=== PATIENT | male | born 1950 | race Caucasian/White ===

== ENCOUNTER 2016-10-19 10:51 | Observation (INO) | payer OTHER ==
[~2016-10-19] VITALS: Ht 180.3 cm; Wt 64.0 kg
--- NOTE | 2016-10-19 11:11 | PD ---
HPI Chief Complaint: back pain Time Seen by Provider: 11:07 Travel History International Travel<30 days: No Contact w/Intl Traveler<30days: No Traveled to known affect area: No History of Present Illness HPI 66-year-old male [facility] patient with history of previous neck injury, presents to the ER today with several weeks' history of lower back pain with radiation down the left leg and to the left side which she currently measures a 4 out of 10. He states that it is worse when he tries to walk and he lives alone. He states is getting more difficult for him to do things and he states that he has had stool incontinence and urinary incontinence because he is in so much pain he can 't get into the bathroom in time. However, he states he does have control of his bowels. He denies any fevers, injuries, denies any other issues. Modifying Factors: Worse with movement Associated Signs & Symptoms: Lower back pain Risk Factors: None PFSH Past Medical History Diminished Hearing: No Past Surgical History Abdominal Surgery: Yes (HERNIA WITH KEN SCREEN) Neurologic Surgery: Yes (NECK) Oral Surgery: Yes (WISDOM TOOTH) Social History Alcohol Use: Yes (2-4PK/DAY) Tobacco Use: Yes (2PPD) Substance Use: No Allergies-Medications (Allergen,Severity, Reaction): Coded Allergies: Penicillin (Verified Allergy, Mild, "WILL KILL ME", 10/19/16) Reported Meds & Prescriptions Reported Meds & Active Scripts Active No Active Prescriptions or Reported Medications Review of Systems Except as stated in HPI: all other systems reviewed are Neg Physical Exam Narrative GENERAL: Well-developed elderly white male patient currently in mild distress. Awake and oriented 3. SKIN: Focused skin assessment warm/dry. HEAD: Atraumatic. Normocephalic. EYES: Pupils equal and round. No scleral icterus. No injection or drainage. ENT: No nasal bleeding or discharge. Mucous membranes pink and moist. NECK: Trachea midline. No JVD. CARDIOVASCULAR: Regular rate and rhythm. No murmur appreciated. RESPIRATORY: No accessory muscle use. Clear to auscultation. Breath sounds equal bilaterally. GASTROINTESTINAL: Abdomen soft, non-tender, nondistended. Hepatic and splenic margins not palpable. MUSCULOSKELETAL: No obvious deformities. No clubbing. No cyanosis. No edema. BACK: No CVA tenderness. No rash. No point tenderness on palpation of the spine. NEUROLOGICAL: Awake and alert. No obvious cranial nerve deficits. Motor grossly within normal limits. Normal speech. PSYCHIATRIC: Appropriate mood and affect; insight and judgment normal. Data Data Last Documented VS Vital Signs Date Time Temp Pulse Resp B/P Pulse Ox O2 Delivery O2 Flow Rate FiO2 10/19/16 14:21 89 18 113/78 98 10/19/16 11:15 Room Air 10/19/16 11:12 98.4 Orders Complete Blood Count With Diff (10/19/16 11:07) Comprehensive Metabolic Panel (10/19/16 11:07) Urinalysis - C+S If Indicated (10/19/16 11:07) Ct Thor Spine W/O Contrast (10/19/16 11:07) Ct Lumb Spine W/O Contrast (10/19/16 11:07) Ct Hip W/O Contrast (10/19/16 ) Urine Culture (10/19/16 12:00) Admit Order (Ed Use Only) (10/19/16 15:48) Blood Culture (10/19/16 15:52) Ceftriaxone Inj (Rocephin Inj) (10/19/16 16:00) Labs Laboratory Tests Test 10/19/16 10/19/16 11:58 12:00 White Blood Count 7.2 TH/MM3 Red Blood Count 3.94 MIL/MM3 Hemoglobin 13.6 GM/DL Hematocrit 40.3 % Mean Corpuscular Volume 102.2 FL Mean Corpuscular Hemoglobin 34.5 PG Mean Corpuscular Hemoglobin 33.8 % Concent Red Cell Distribution Width 14.4 % Platelet Count 179 TH/MM3 Mean Platelet Volume 9.4 FL Neutrophils (%) (Auto) 77.4 % Lymphocytes (%) (Auto) 15.4 % Monocytes (%) (Auto) 6.1 % Eosinophils (%) (Auto) 0.4 % Basophils (%) (Auto) 0.7 % Neutrophils # (Auto) 5.6 TH/MM3 Lymphocytes # (Auto) 1.1 TH/MM3 Monocytes # (Auto) 0.4 TH/MM3 Eosinophils # (Auto) 0.0 TH/MM3 Basophils # (Auto) 0.1 TH/MM3 CBC Comment DIFF FINAL Differential Comment Sodium Level 129 MEQ/L Potassium Level 3.4 MEQ/L Chloride Level 92 MEQ/L Carbon Dioxide Level 29.5 MEQ/L Anion Gap 8 MEQ/L Blood Urea Nitrogen 10 MG/DL Creatinine 1.09 MG/DL Estimat Glomerular Filtration 67 ML/MIN Rate Random Glucose 104 MG/DL Calcium Level 8.5 MG/DL Total Bilirubin 0.8 MG/DL Aspartate Amino Transf 25 U/L (AST/SGOT) Alanine Aminotransferase 24 U/L (ALT/SGPT) Alkaline Phosphatase 93 U/L Total Protein 7.0 GM/DL Albumin 3.3 GM/DL Urine Color YELLOW Urine Turbidity HAZY Urine pH 5.5 Urine Specific [place] 1.015 Urine Protein TRACE mg/dL Urine Glucose (UA) NEG mg/dL Urine Ketones NEG mg/dL Urine Occult Blood NEG Urine Nitrite POS Urine Bilirubin NEG Urine Urobilinogen 2.0 MG/DL Urine Leukocyte Esterase LARGE Urine RBC 1 /hpf Urine WBC 15 /hpf Urine Transitional Epithelial <1 /hpf Cells Urine Bacteria MANY /hpf Urine Hyaline Casts 1 /lpf Urine Mucus FEW /lpf Microscopic Urinalysis Comment CULTURE INDICATED MDM Medical Decision Making Medical Screen Exam Complete: Yes Emergency Medical Condition: Yes Medical Record Reviewed: Yes Interpretation(s) Laboratory Tests Test 10/19/16 10/19/16 11:58 12:00 Red Blood Count 3.94 MIL/MM3 (4.50-5.90) Mean Corpuscular Volume 102.2 FL (80.0-100.0) Mean Corpuscular Hemoglobin 34.5 PG (27.0-34.0) Neutrophils (%) (Auto) 77.4 % (16.0-70.0) Sodium Level 129 MEQ/L (136-145) Potassium Level 3.4 MEQ/L (3.5-5.1) Chloride Level 92 MEQ/L (98-107) Estimat Glomerular Filtration 67 ML/MIN (>89) Rate Albumin 3.3 GM/DL (3.4-5.0) Urine Turbidity HAZY (CLEAR) Urine Nitrite POS (NEG) Urine Leukocyte Esterase LARGE (NEG) Urine WBC 15 /hpf (0-5) Urine Bacteria MANY /hpf (NONE) Urine Mucus FEW /lpf (OCC) Last 24 hours Impressions [address] CT 10/19/16 2086 Signed Impressions: Service Date/Time: Wednesday, October 19, 2016 12:41 - CONCLUSION: 1. Mild multilevel degenerative spondylosis most prominently at T2-3 with moderate right neural foraminal stenosis secondary to posterior osteophytes. 2. Moderate left cardiovascular calcifications with ectasia of the thoracic aorta, as above. 3. Slight prominence of the main pulmonary artery which measures up to 3.1 cm. This finding may indicate some degree of pulmonary artery hypertension. 4. Bilateral renal cysts. Additional partially imaged and therefore incompletely characterized isodense and hyperdense lesions in the left kidney. Further characterization may be performed with ultrasound or multiphase CT/MRI exam on an outpatient basis. Narciso Ford MD Lumbar Spine CT 10/19/16 1107 Signed Impressions: Service Date/Time: Wednesday, October 19, 2016 12:41 - CONCLUSION: 1. Moderate multilevel degenerative spondylosis most prominently at L4-5 with eccentric exuberant right lateral osteophyte and facet arthropathy resulting in effacement right lateral recess and severe right neural foraminal stenosis. 2. Bilateral renal cysts with subcentimeter isodense and hyperdense renal lesions that are incompletely characterized on this exam due to incomplete visualization and lack of IV contrast. Further characterization may be performed with ultrasound or MRI/CT renal mass protocol as indicated. Narciso Ford MD Lower Extremity CT 10/19/16 0000 Signed Impressions: Service Date/Time: Wednesday, October 19, 2016 12:46 - CONCLUSION: Unremarkable study. KDewayne Coffey MD Differential Diagnosis Lower back pain with radiation down the left legradiculopathy versus muscle spasms versus sciatica versus fractures Narrative Course CAT scan shows multilevel disease and severe stenosis at L4-L5. Case is discussed with Dr. Obrien who agrees to admit the patient for possible further treatment of his back issues. Patient also has a UTI and IV Anzemet eyes were initiated. Diagnosis Primary Impression: Severe back pain Additional Impression: Spinal stenosis at L4-L5 level Admitting Information Admitting Physician Requests: Admit Scripts No Active Prescriptions or Reported Meds Maci Mono MD Oct 19, 2016 11:11
[2016-10-19 11:12] VITALS: BP 153/98; PULSE 104; PULSE 105; RESP 15; TEMP 98.4; O2SAT 100
[2016-10-19 12:17] LABS: AUTOMATED NEUTROPHIL # 5.6 TH/MM3 (1.8-7.7); BASOPHIL # 0.1 TH/MM3 (0-0.2); BASOPHIL % 0.7 % (0.0-2.0); EOSINOPHIL % 0.4 % (0.0-4.0); HEMATOCRIT 40.3 % (39.0-51.0); HEMO FLAGS DIFF FINAL; LYMPH % 15.4 % (9.0-44.0); LYMPHOCYTE # 1.1 TH/MM3 (1.0-4.8); MEAN CELL VOLUME 102.2 FL (80.0-100.0); MEAN CORPUSCULAR HEMOGLOBIN 34.5 PG (27.0-34.0); MEAN CORPUSCULAR HGB CONC 33.8 % (32.0-36.0); MONO % 6.1 % (0.0-8.0); NEUT % 77.4 % (16.0-70.0); PLATELET COUNT 179 TH/MM3 (150-450); RED BLOOD COUNT 3.94 MIL/MM3 (4.50-5.90); RED CELL DISTRIBUTION WIDTH 14.4 % (11.6-17.2); WHITE BLOOD COUNT 7.2 TH/MM3 (4.0-11.0)
[2016-10-19 12:21] LABS: BACTERIA, URINE MANY /hpf; BLOOD, URINE NEG (NEG); COMMENT (UR) CULTURE INDICATED; CULTURE IF INDICATED CULTURE INDICATED; GLUCOSE,URINE NEG (NEG); HYALINE CAST, URINE 1 /lpf (RARE); KETONE, URINE NEG (NEG); MUCUS URINE FEW /lpf (OCC); PH, URINE 5.5 (5.0-8.5); TRANSITIONAL EPI CELLS, URINE <1 /hpf; URINE COLOR YELLOW (YELLW/STRAW)
[2016-10-19 12:23] LABS: NITRITE,URINE POS (NEG)
[2016-10-19 12:38] LABS: ANION GAP 8 MEQ/L (5-15); AST (GOT) 25 U/L (15-37); BICARBONATE 29.5 MEQ/L (21.0-32.0); BLOOD UREA NITROGEN 10 MG/DL (7-18); CHLORIDE 92 MEQ/L (98-107); GLOMERULAR FILTRATION RATE 67 ML/MIN (>89); POTASSIUM 3.4 MEQ/L (3.5-5.1); SODIUM (NA) 129 MEQ/L (136-145)
[2016-10-19 12:41] LABS: ALKALINE PHOSPHATASE 93 U/L (45-117); ALT (GPT) 24 U/L (12-78); TOTAL BILIRUBIN ADULT 0.8 MG/DL (0.2-1.0)
--- NOTE | 2016-10-19 13:07 | RADRPT ---
EXAM DATE/TIME: 10/19/2016 12:46 [facility] COMPARISON: PELVIS AP ONLY, November 02, 2013, 18:37. INDICATIONS : Left hip pain. RADIATION DOSE: 8.32 CTDIvol (mGy) MEDICAL HISTORY : None SURGICAL HISTORY : None. ENCOUNTER: Initial ACUITY: 1 day PAIN SCALE: 8/10 LOCATION: Left hip TECHNIQUE: Volumetric scanning of the hip was performed. Using automated exposure control and adjustment of the mA and/or kV according to patient size, radiation dose was kept as low as reasonably achievable to o btain optimal diagnostic quality images. DICOM format image data is available electronically for rev iew and comparison. FINDINGS: No definite fractures, or dislocations are identified. No definite lytic or sclerotic lesion is seen . The joint space is well maintained. CONCLUSION: Unremarkable study. Court Coffey MD on October 19, 2016 at 13:02 Board Certified Radiologist. This report was verified electronically.
--- NOTE | 2016-10-19 13:35 | RADRPT ---
EXAM DATE/TIME: 10/19/2016 12:41 [facility] COMPARISON: No previous studies available for comparison. INDICATIONS : Lower back pain radiating down left leg RADIATION DOSE: 35.21 CTDIvol (mGy) ; Combined studies - Thoracic Spine/Lumbar Spine MEDICAL HISTORY : None SURGICAL HISTORY : Hernea repair,neck surgery ENCOUNTER: Initial ACUITY: 1 week PAIN SCALE: 4/10 LOCATION: T-spine TECHNIQUE: Volumetric scanning of the thoracic spine was performed. Multiplanar reconstructions in the sagittal , coronal and oblique axial planes were performed. Using automated exposure control and adjustment o f the mA and/or kV according to patient size, radiation dose was kept as low as reasonably achievable to obtain optimal diagnostic quality images. DICOM format image data is available electronically f or review and comparison. FINDINGS: The vertebral bodies of the thoracic spine are in normal alignment without evidence of subluxation. Vertebral body height is maintained. No fractures are seen. Visualized portions of the lungs demonst rates minimal right basilar groundglass opacities likely reflecting atelectasis. There are also focal areas of subtle groundglass opacity and cystic change in the right upper lobe and right lung apex li cliff reflecting sequela of inflammation/infection. Atherosclerotic calcifications are seen throughout the thoracic aorta and proximal arch vessels. There is ectasia of the thoracic aorta with the ascend ing aorta measuring 4 cm in the descending aorta measuring 3.1 cm. There is slight prominence of the main pulmonary artery which measures 3.1 cm. This may reflect some degree of pulmonary artery hyperte nsion. There are multiple simple cysts noted in the visualized portions of the kidneys bilaterally. A dditional isodense and hyperdense lesions which are incompletely imaged and characterized. T1-T2: Normal. T2-T3: Moderate disc space loss with eccentric posterior osteophyte formation. Resultant moderate right and very mild left neural foraminal stenosis. The thecal sac has a normal diameter. T3-T4: Mild to moderate disc space loss with minimal posterior osteophytes. The thecal sac has a normal diam eter. No significant neural foraminal stenosis. T4-T5: Mild to moderate disc space loss with minimal posterior osteophytes. The thecal sac has a normal diam eter. No significant neural foraminal stenosis. T5-T6: Mild to moderate disc space loss with minimal posterior osteophytes. The thecal sac has a normal diam eter. No significant neural foraminal stenosis. T6-T7: Mild to moderate disc space loss with minimal posterior disc osteophytes. The thecal sac has a normal diameter. No significant neural foraminal stenosis. T7-T8: The thecal sac has a normal diameter. No evidence of disc bulge or protrusion. T8-T9: The thecal sac has a normal diameter. No evidence of disc bulge or protrusion. T9-T10: The thecal sac has a normal diameter. No evidence of disc bulge or protrusion. T10-T11: Anterior osteophytes. The thecal sac has a normal diameter. No evidence of disc bulge or protrusion. T11-T12: Anterior osteophytes. The thecal sac has a normal diameter. Mild bilateral facet arthropathy. No louise dence of disc bulge or protrusion. T12-L1: Anterior osteophytes. The thecal sac has a normal diameter. Mild bilateral facet arthropathy No evid ence of disc bulge or protrusion. CONCLUSION: 1. Mild multilevel degenerative spondylosis most prominently at T2-3 with moderate right neural roland inal stenosis secondary to posterior osteophytes. 2. Moderate left cardiovascular calcifications with ectasia of the thoracic aorta, as above. 3. Slight prominence of the main pulmonary artery which measures up to 3.1 cm. This finding may indic ate some degree of pulmonary artery hypertension. 4. Bilateral renal cysts. Additional partially imaged and therefore incompletely characterized isoden se and hyperdense lesions in the left kidney. Further characterization may be performed with ultrasou nd or multiphase CT/MRI exam on an outpatient basis. Narciso Ford MD on October 19, 2016 at 13:15 Board Certified Radiologist. This report was verified electronically.
[2016-10-19 14:21] VITALS: BP 113/78; PULSE 89; RESP 18; O2SAT 98
--- NOTE | 2016-10-19 15:25 | RADRPT ---
EXAM DATE/TIME: 10/19/2016 12:41 [facility] COMPARISON: No previous studies available for comparison. INDICATIONS : Lower back pain. RADIATION DOSE: 32.21 CTDIvol (mGy) MEDICAL HISTORY : None SURGICAL HISTORY : None. ENCOUNTER: Initial ACUITY: 1 day PAIN SCALE: 8/10 LOCATION: lower back TECHNIQUE: Volumetric scanning of the lumbar spine was performed. Multiplanar reconstructions in the sagittal, coronal and oblique axial planes were performed. Using automated exposure control and adjustment of the mA and/or kV according to patient size, radiation dose was kept as low as reasonably achievable t o obtain optimal diagnostic quality images. DICOM format image data is available electronically for review and comparison. FINDINGS: VERTEBRAE: Normal vertebral body height. ALIGNMENT: No evidence of subluxation. PARAVERTEBRAL SOFT TISSUES: There are bilateral simple appearing renal cysts. However, there are partially imaged isodense to hyp odense subcentimeter bilateral renal lesions, most prominently on the left. There is moderate sigmoid diverticulosis. Moderate atherosclerotic calcifications are noted in the iliac vessels. T12-L1: The thecal sac has a normal diameter. No evidence of significant disc bulge or protrusion. The neur al foramina are patent bilaterally. L1-L2: Mild eccentric disc branch with with anterior osteophyte formation and mild bilateral facet arthropat hy. Resultant minimal caudal left neural foraminal narrowing. Central canal is patent. L2-L3: Mild diffuse disc bulge with effacement of the anterior thecal sac. Mild caudal bilateral neural fora katia narrowing. L3-L4: Mild diffuse disc bulge with with result in mild caudal bilateral neural foraminal narrowing. Central canal is patent. L4-L5: Mild diffuse disc and eccentric right lateral exuberant osteophytes. Moderate right and mild left fac et arthropathy. There is effacement of the lateral recess on the right. Resultant severe right neural foraminal stenosis. There is moderate caudal left neural foraminal stenosis. L5-S1: Mild diffuse disc bulge with severe right and moderate left facet arthropathy. Resultant mild left an d mild to moderate right caudal neural foraminal narrowing. Central canal is patent. CONCLUSION: 1. Moderate multilevel degenerative spondylosis most prominently at L4-5 with eccentric exuberant rig ht lateral osteophyte and facet arthropathy resulting in effacement right lateral recess and severe r ight neural foraminal stenosis. 2. Bilateral renal cysts with subcentimeter isodense and hyperdense renal lesions that are incomplete ly characterized on this exam due to incomplete visualization and lack of IV contrast. Further charac terization may be performed with ultrasound or MRI/CT renal mass protocol as indicated. Narciso Ford MD on October 19, 2016 at 13:34 Board Certified Radiologist. This report was verified electronically.
[2016-10-19] MEDS ORDERED: cefTRIAXone INJ 1,000 MG in SODIUM CHLORIDE 0.9% INJ 100 ML IV ONE (16:00)
--- NOTE | 2016-10-19 16:17 | PD.CONS ---
(Dmitriy Ventura) [facility] Service Neurosurgery Consult Requested By Dr Moon Reason for Consult Low back pain, left hip pain, difficulty walking Primary Care Physician No Primary Care Physician History of Present Illness This is a 66-year-old male who reports that he started with mid back pain a few weeks ago that has gradually worsened and changed locations. He states that he now has pain in the neck and the low back. The low back pain goes into both buttocks/hips when he stands and that both hips will give out on him. He denies any numbness, tingling or pain down either lower extremity or to the upper extremities. He states that he is unable to walk due to the pain but denies any falls. He has taken a "couple of Aleve" for the pain but denies any other medication for the pain. He reports urinating and stooling on himself but was aware he needed to go to the bathroom. He states he wasn't able to make it to the bathroom due to the pain and thus soiled himself. He reports that he lives by himself. When seen he states that his neck felt tight but was not painful and he denied any pain to the hips or the back. He has had a previous cervical fracture in 1970 in which he was placed in tongs with traction which resulted in fusion of C5-6 when in the . He denied any surgery to the cervical spine. (Dmitriy Ventura) Review of Systems CONSTITUTIONAL: Patient denies any fever or chills. HEENT: Patient endorses blurry vision and states he needs glasses. He is legally blind in the left eye. He denies any other visual or hearing problems. NECK: Patient complains of neck pain. RESPIRATORY: Patient denies any shortness of breath or productive cough. CARDIOVASCULAR: Patient denies any chest pain, palpitations or irregular heartbeat. GASTROINTESTINAL: Patient denies any abdominal pain, nausea, vomiting or incontinence of stool. He has stooled on himself but was aware he needed to go but couldn't make it to the bathroom in time due to pain. GENITOURINARY: Patient endorses urgency with urination. He denies any frequency or incontinence of urine. He has urinated on himself but was aware he needed to go but couldn't make it to the bathroom in time due to pain. INTEGUMENTARY: Patient denies any rashes, ulcerations or other lesions. MUSCULOSKELETAL: Patient complains of pain to both hips/buttocks, especially on the left and difficulty walking due to the pain. His legs are "wobbly" when he stands due to the pain. He denies any arm pain or weakness. HAEMATOLOGICAL/LYMPHATIC: Patient states he bleeds easily "once in a while." He denies any bruising or swollen glands. NEUROLOGICAL: Patient states he has difficulty walking secondary to the pain. He denies any headache, dizziness, numbness or tingling. PSYCHIATRIC: Patient denies any anxiety or depression. 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 HEENT: Normocephalic, atraumatic. Left eye clouded, right pupil round reacts briskly, EOMs intact. External ears w/o wounds, ear canals w/o erythema or drainage, TMs pearly rooney. MMM & pink. NECK: Minimally TTP at thoracocervical junction o/w midline cervical spine NTTP , no pain w/ROM, no JVD, trachea midline. RESPIRATORY: Mild adventious breath sounds upon exhalation, w/o W/R/R, equal excursion, nonlaboured, on RA. CARDIOVASCULAR: S1S2 w/RRR w/o M/G/R, radial & pedal pulses 2+ bilaterally, cap refill < 2 sec, no pedal edema. GASTROINTESTINAL: Abdomen soft, nontender, no palpable masses or organomegaly, positive bowel sounds. INTEGUMENTARY: Skin warm, dry & intact, no evident discolouration, ulcerations, rashes or other lesions. MUSCULOSKELETAL: SOLIMAN w/o difficulty, 5th digit bilateral hands w/boutonniere deformity, no evident clubbing, TTP to left buttock/lateral hip, minimally TTP at thoracocervical junction o/w midline thoracolumbar spine NTTP. HAEMATOLOGICAL/LYMPHATIC: No evident ecchymosis. PSYCHIATRIC: Readily interacts, normal affect. NEUROLOGICAL: AAOx3 Speech clear & appropriate Follows simple commands w/o difficulty CN II-XII grossly intact Sensation intact to light touch to all extremities Motor strength 5/5 to all major flexion & muscle groups including hand intrinsics & extrinsics Mild ankle clonus Babinski response neutral Mild tremor to upper extremities at rest, difficult to assess [facility] Laboratory Tests Test 10/19/16 10/19/16 11:58 12:00 White Blood Count 7.2 Red Blood Count 3.94 Hemoglobin 13.6 Hematocrit 40.3 Mean Corpuscular Volume 102.2 Mean Corpuscular Hemoglobin 34.5 Mean Corpuscular Hemoglobin 33.8 Concent Red Cell Distribution Width 14.4 Platelet Count 179 Mean Platelet Volume 9.4 Neutrophils (%) (Auto) 77.4 Lymphocytes (%) (Auto) 15.4 Monocytes (%) (Auto) 6.1 Eosinophils (%) (Auto) 0.4 Basophils (%) (Auto) 0.7 Neutrophils # (Auto) 5.6 Lymphocytes # (Auto) 1.1 Monocytes # (Auto) 0.4 Eosinophils # (Auto) 0.0 Basophils # (Auto) 0.1 CBC Comment DIFF FINAL Differential Comment Sodium Level 129 Potassium Level 3.4 Chloride Level 92 Carbon Dioxide Level 29.5 Anion Gap 8 Blood Urea Nitrogen 10 Creatinine 1.09 Estimat Glomerular Filtration 67 Rate Random Glucose 104 Calcium Level 8.5 Total Bilirubin 0.8 Aspartate Amino Transf 25 (AST/SGOT) Alanine Aminotransferase 24 (ALT/SGPT) Alkaline Phosphatase 93 Total Protein 7.0 Albumin 3.3 Urine Color YELLOW Urine Turbidity HAZY Urine pH 5.5 Urine Specific [place] 1.015 Urine Protein TRACE Urine Glucose (UA) NEG Urine Ketones NEG Urine Occult Blood NEG Urine Nitrite POS Urine Bilirubin NEG Urine Urobilinogen 2.0 Urine Leukocyte Esterase LARGE Urine RBC 1 Urine WBC 15 Urine Transitional Epithelial <1 Cells Urine Bacteria MANY Urine Hyaline Casts 1 Urine Mucus FEW Microscopic Urinalysis Comment CULTURE INDICATED Date/Time Procedure Status Source Growth 10/19/16 12:00 Urine Culture Received Urine Random Urine Pending (Dmitriy Ventura) Result Diagram: 10/19/16 1158 10/19/16 1158 Imaging Recent Impressions Thoracic Spine CT 10/19/161106 Signed Impressions: Service Date/Time: Wednesday, October 19, 2016 12:41 - CONCLUSION: 1. Mild multilevel degenerative spondylosis most prominently at T2-3 with moderate right neural foraminal stenosis secondary to posterior osteophytes. 2. Moderate left cardiovascular calcifications with ectasia of the thoracic aorta, as above. 3. Slight prominence of the main pulmonary artery which measures up to 3.1 cm. This finding may indicate some degree of pulmonary artery hypertension. 4. Bilateral renal cysts. Additional partially imaged and therefore incompletely characterized isodense and hyperdense lesions in the left kidney. Further characterization may be performed with ultrasound or multiphase CT/MRI exam on an outpatient basis. Narciso Ford MD Lumbar Spine CT 10/19/161106 Signed Impressions: Service Date/Time: Wednesday, October 19, 2016 12:41 - CONCLUSION: 1. Moderate multilevel degenerative spondylosis most prominently at L4-5 with eccentric exuberant right lateral osteophyte and facet arthropathy resulting in effacement right lateral recess and severe right neural foraminal stenosis. 2. Bilateral renal cysts with subcentimeter isodense and hyperdense renal lesions that are incompletely characterized on this exam due to incomplete visualization and lack of IV contrast. Further characterization may be performed with ultrasound or MRI/CT renal mass protocol as indicated. Narciso Ford MD Lower Extremity CT 10/19/16 0000 Signed Impressions: Service Date/Time: Wednesday, October 19, 2016 12:46 - CONCLUSION: Unremarkable study. Court Coffey MD (Dmitriy Ventura) Assessment and Plan Diagnosis: (1) Severe back pain ICD Code: M54.9 (2) Spinal stenosis at L4-L5 level ICD Code: M48.06 Assessment and Plan Impression: 1. Low back pain w/radiculopathy 2. L4-5 spinal stenosis 3. UTI Plan: Admit to NSGY (Dr Obrien) Pain control Broad spectrum abx and adjust based upon urine culture Diet as tolerated Mobilise patient w/assistance PT eval & tx (Dmitriy Ventura) Attending Statement I have personally seen and examined the patient on the date of this note. Pertinent documentation and study results have been reviewed by the undersigned. I have personally developed the treatment plan and performed medical decision making. Agree with findings, exam, and treatment plan as noted above. Mr. Shaw complains of 3 or 4 weeks of progressive left greater than right lateral hip pain with radiation to the lateral aspect of the left greater than right lower extremity down to the calf and occasionally the foot. He does complain also mid thoracic pain as well as somewhat more chronic neck pain. He denies any pain and weakness numbness or paresthesias in the upper extremities. He states that the hip and lateral leg pain becomes so severe that he cannot walk. He denies any fevers chills or sweats. He has an occasional cough but no chest pain. He does smoke cigarettes. He apparently is CT connected, but denies any workup of his spinal problems at the [facility] within the past few months. On examination he is awake and alert. He has opacification of the left cornea. His respirations are clear to auscultation cardiac exam reveals regular rhythm without murmur. He has no significant pain with range of motion of the shoulders hips knees or ankles. He has moderate cervical thoracic midline and paraspinous muscle tenderness was somewhat lesser tenderness in the midthoracic region. He actually has only mild tenderness over the lower lumbar midline and paraspinous musculature. No posterior iliac crest tenderness He does not really have any tenderness over the right or left lateral hip or posterior trochanter or gluteal musculature. No tenderness over the bilateral ischial tuberosity or sciatic notch. No obvious piriformis tenderness. He does not complain of any pain with bilateral hip range of motion her straight leg raising. There is no significant lower extremity edema atrophy or fasciculation. Posterior tibial pulse 1+ bilateral. Sensation is intact to light touch throughout the upper and lower extremities except for complain of mild decrease over the left lateral calf. Strength is within normal limits in all major flexion and extension groups throughout the upper and lower extremities including hand intrinsic musculature and inversion and eversion of the right left foot, although limited testing in the right hand due to some joint deformity. Bronwyn's response absent bilateral There is no ankle clonus Plantar responses are neutral The patient's 10/19/2016 CT scan of the thoracic and lumbar spine images of been reviewed by the undersigned. He has relatively normal overall thoracic and lumbar spine curvature. There is a rather large chronic-appearing right L4 5 foraminal calcified disc herniation, however the L4 and L5 nerve roots appear to traverse this area without significant compression. He actually does not seem to have any significant thoracic or lumbar spine stenosis and no subluxation. A single area of foraminal stenosis noted in the upper thoracic region but no significant lumbar foraminal stenosis except perhaps at the right L4 5 level. I had a long discussion with the patient regarding the findings. His presentation is quite unusual. I am unable to elicit any significant joint or myofascial pain along the hip and thigh region and no definite radicular deficit. He has primarily L5 distribution symptoms, but no definite evidence of L5 nerve compression on the CT scan. He has quite a bit of neck pain and tenderness, but no definite radicular or myelopathic symptoms or deficit. We will continue physical therapy I would like to check an MRI of the cervical spine since he does appear to have significant disease in the lower cervical region on the CT scan of the thoracic spine. We will check a CRP and sedimentation rate due to possibility inflammatory disease, infection. Initial labs positive for UTI-antibiotic started. (Eddie Obrien MD) Dmitriy Ventura Oct 19, 2016 16:17 Eddie Obrien MD Oct 19, 2016 22:54
[2016-10-19 17:07] VITALS: BP 101/70; PULSE 89; RESP 20; O2SAT 97
[2016-10-19 19:00] VITALS: BP 112/74; PULSE 85; RESP 17; O2SAT 98
[2016-10-19 21:00] VITALS: BP 107/73; PULSE 1; PULSE 71; RESP 19; O2SAT 96
[2016-10-19] MEDS: POTASSIUM CHLORIDE 10 MEQ CONTROLLED RELEASE TAB PO SCH (23:25)
[2016-10-19] MEDS: SODIUM CHLORIDE 23.4% INJ 188 MEQ in SODIUM CHLOR 0.9% 1000 ML INJ 1,000 ML IV SCH (23:50)
--- NOTE | 2016-10-20 00:30 | RADRPT ---
EXAM DATE/TIME: 10/20/2016 00:12 [facility] COMPARISON: CHEST SINGLE AP, November 02, 2013, 18:36. INDICATIONS : Cough. MEDICAL HISTORY : None. SURGICAL HISTORY : None. ENCOUNTER: Initial ACUITY: 1 day PAIN SCORE: 0/10 LOCATION: Bilateral chest FINDINGS: PA and lateral views of the chest demonstrate the lungs to be symmetrically aerated without evidence of mass, infiltrate or effusion. The cardiomediastinal contours are unremarkable. Osseous structure s are intact. CONCLUSION: No evidence of acute cardiopulmonary disease. Jamel Oviedo MD on October 20, 2016 at 0:28 Board Certified Radiologist. This report was verified electronically.
[2016-10-20 01:00] VITALS: BP 110/74; PULSE 70; RESP 18; TEMP 97; O2SAT 97
[2016-10-20 04:00] VITALS: BP 120/77; PULSE 74; RESP 18; TEMP 96.9; O2SAT 98
[2016-10-20 08:32] VITALS: BP 124/81; PULSE 63; RESP 20; TEMP 97.2; O2SAT 97
[2016-10-20] MEDS: POTASSIUM CHLORIDE 10 MEQ CONTROLLED RELEASE TAB PO SCH ×2 (10:09→21:45)
[2016-10-20 11:28] LABS: ALT (GPT) 22 U/L (12-78); ANION GAP 10 MEQ/L (5-15); AST (GOT) 23 U/L (15-37); BICARBONATE 30.2 MEQ/L (21.0-32.0); BLOOD UREA NITROGEN 13 MG/DL (7-18); CHLORIDE 97 MEQ/L (98-107); GLOMERULAR FILTRATION RATE 54 ML/MIN (>89); POTASSIUM 3.7 MEQ/L (3.5-5.1); SODIUM (NA) 137 MEQ/L (136-145)
[2016-10-20 11:31] LABS: ALKALINE PHOSPHATASE 101 U/L (45-117); TOTAL BILIRUBIN ADULT 0.8 MG/DL (0.2-1.0)
[2016-10-20 12:29] VITALS: BP 112/84; PULSE 80; RESP 20; TEMP 98; O2SAT 92
--- NOTE | 2016-10-20 13:00 | RADRPT ---
EXAM DATE/TIME: 10/20/2016 10:48 [facility] COMPARISON: No previous studies available for comparison. INDICATIONS : Pain in neck. MEDICAL HISTORY : left eye blindness. SURGICAL HISTORY : Inguinal hernia repair. cervical surgery, oral surgery ENCOUNTER: Subsequent ACUITY: 2 day PAIN SCORE: 3/10 LOCATION: neck TECHNIQUE: Multiplanar, multisequence MRI examination of the cervical spine was performed. FINDINGS: The marrow signal appears intact, and the spinal cord appears intact with technique. There is slight anterior wedging of C6 without any marrow edema chronic in nature. C2-C3: No appreciable compromise to the thecal sac, exiting nerve roots are seen. The neural forami na are patent bilaterally. No appreciable thecal sac stenosis is seen. C3-C4: There is moderate neural foramina compromise bilaterally due to bulging disc and hypertrophi c changes. No appreciable thecal sac stenosis is seen. C4-C5: There is moderate neural foramina compromise bilaterally due to bulging disc and hypertrophi c changes. No appreciable thecal sac stenosis is seen. Slight degenerative changes are seen within th e disc space and facets. C5-C6: No appreciable compromise to the thecal sac, exiting nerve roots are seen. The neural foramin a are patent bilaterally. No appreciable thecal sac stenosis is seen. Moderate degenerative changes a re seen within the disc space and facets. C6-C7: There is moderate neural foramina compromise bilaterally due to bulging disc and hypertrophic changes. No appreciable thecal sac stenosis is seen. Slight degenerative changes are seen within the disc space and facets. C7-T1: No appreciable compromise to the thecal sac, exiting nerve roots are seen. The neural foramin a are patent bilaterally. No appreciable thecal sac stenosis is seen. CONCLUSION: Neural foramina compromise bilateral C3-C4, bilateral C4-5, bilateral C6-C7 without any s ignificant thecal sac stenosis Court Coffey MD on October 20, 2016 at 12:56 Board Certified Radiologist. This report was verified electronically.
[2016-10-20 16:19] VITALS: BP 124/87; PULSE 81; RESP 20; TEMP 100; TEMP 95.7; O2SAT 95
[2016-10-20] MEDS ORDERED: WALKER WHEELS/F1 MIS (16:27)
--- NOTE | 2016-10-20 16:29 | HHI.NSPN ---
(Dmitriy Ventura) History Chief Complaint: Back pain, improved (Dmitriy Ventura) Interval History 10/19: This is a 66-year-old male who reports that he started with mid back pain a few weeks ago that has gradually worsened and changed locations. He states that he now has pain in the neck and the low back. The low back pain goes into both buttocks/hips when he stands and that both hips will give out on him. He denies any numbness, tingling or pain down either lower extremity or to the upper extremities. He states that he is unable to walk due to the pain but denies any falls. He has taken a "couple of Aleve" for the pain but denies any other medication for the pain. He reports urinating and stooling on himself but was aware he needed to go to the bathroom. He states he wasn't able to make it to the bathroom due to the pain and thus soiled himself. He reports that he lives by himself. When seen he states that his neck felt tight but was not painful and he denied any pain to the hips or the back. He has had a previous cervical fracture in 1970 in which he was placed in tongs with traction which resulted in fusion of C5-6 when in the . He denied any surgery to the cervical spine. 10/20: Patient states that he is doing much better today and that he is "dancing around here." Physical Therapy evaluated the patient and he was able to ambulate using a wheeled walker. He reports that his back pain is much better today. (Dmitriy Ventura) System Review Comments CONSTITUTIONAL: Patient denies any fever or chills. NECK: Patient denies any neck pain. RESPIRATORY: Patient denies any shortness of breath or productive cough. CARDIOVASCULAR: Patient denies any chest pain, palpitations or irregular heartbeat. GASTROINTESTINAL: Patient denies any abdominal pain, nausea, vomiting or incontinence of stool. GENITOURINARY: Patient endorses urgency with urination. He denies any frequency or incontinence of urine. INTEGUMENTARY: Patient denies any rashes, ulcerations or other lesions. MUSCULOSKELETAL: Patient complains of pain to the back that is better. He reports ambulating using a wheeled walker without any difficulty. He denies any arm pain or weakness. NEUROLOGICAL: Patient denies any headache, dizziness, numbness or tingling. ( Dmitriy Ventura) Exam Results Vital Signs Date Time Temp Pulse Resp B/P Pulse Ox O2 Delivery O2 Flow Rate FiO2 10/20/16 12:29 98.0 80 20 112/84 92 10/19/16 21:00 Room Air Intake and Output 10/19/16 10/19/16 10/20/16 08:00 16:00 00:00 Output Total 100 ml 150 ml Balance -100 ml -150 ml (Dmitriy Ventura) Physical Examination GENERAL: Patient watching TV in bed, no apparent distress, normal affect. NECK: Midline cervical spine NTTP, no pain w/ROM, no JVD, trachea midline. RESPIRATORY: Essentially clear bilaterally w/o W/R/R, equal excursion, nonlaboured, on RA. CARDIOVASCULAR: S1S2 w/RRR w/o M/G/R, radial & pedal pulses 2+ bilaterally, cap refill < 2 sec, no pedal edema. GASTROINTESTINAL: Abdomen soft, nontender, positive bowel sounds. INTEGUMENTARY: Skin warm, dry & intact, no evident discolouration, ulcerations, rashes or other lesions. MUSCULOSKELETAL: SOLIMAN w/o difficulty, 5th digit bilateral hands w/boutonniere deformity, no evident clubbing, NTTP to left buttock/lateral hip, midline thoracolumbar spine & paraspinals NTTP. NEUROLOGICAL: AAOx3 Speech clear & appropriate Follows simple commands w/o difficulty Sensation intact to light touch to all extremities Motor strength 5/5 to all major flexion & muscle groups (Dmitriy Ventura) Lab, Micro, Other Results Allergies Coded Allergies Type Severity Reaction Last Updated Verified Penicillin Allergy Mild "WILL KILL ME" 10/19/16 Yes Recent Impressions Cervical Spine MRI 10/20/16 0000 Signed Impressions: Service Date/Time: Thursday, October 20, 2016 10:48 - CONCLUSION: Neural foramina compromise bilateral C3-C4, bilateral C4-5, bilateral C6-C7 without any significant thecal sac stenosis Court Coffey MD Thoracic Spine CT 10/19/167 Signed Impressions: Service Date/Time: Wednesday, October 19, 2016 12:41 - CONCLUSION: 1. Mild multilevel degenerative spondylosis most prominently at T2-3 with moderate right neural foraminal stenosis secondary to posterior osteophytes. 2. Moderate left cardiovascular calcifications with ectasia of the thoracic aorta, as above. 3. Slight prominence of the main pulmonary artery which measures up to 3.1 cm. This finding may indicate some degree of pulmonary artery hypertension. 4. Bilateral renal cysts. Additional partially imaged and therefore incompletely characterized isodense and hyperdense lesions in the left kidney. Further characterization may be performed with ultrasound or multiphase CT/MRI exam on an outpatient basis. Narciso Ford MD Lumbar Spine CT 10/19/161106 Signed Impressions: Service Date/Time: Wednesday, October 19, 2016 12:41 - CONCLUSION: 1. Moderate multilevel degenerative spondylosis most prominently at L4-5 with eccentric exuberant right lateral osteophyte and facet arthropathy resulting in effacement right lateral recess and severe right neural foraminal stenosis. 2. Bilateral renal cysts with subcentimeter isodense and hyperdense renal lesions that are incompletely characterized on this exam due to incomplete visualization and lack of IV contrast. Further characterization may be performed with ultrasound or MRI/CT renal mass protocol as indicated. Narciso Ford MD Lower Extremity CT 10/19/16 0000 Signed Impressions: Service Date/Time: Wednesday, October 19, 2016 12:46 - CONCLUSION: Unremarkable study. Court Coffey MD Chest X-Ray 10/19/16 0000 Signed Impressions: Service Date/Time: Thursday, October 20, 2016 00:12 - CONCLUSION: No evidence of acute cardiopulmonary disease. Jamel Oviedo MD // 06:00 18:00 06:00 18:00 06:00 18:00 Intake Total 120 ml Output Total 100 ml 150 ml Balance -100 ml -150 ml 120 ml Intake IV Total 120 ml Output Urine Total 100 ml 150 ml # Voids 8 Laboratory Tests Test 10/19/16 10/19/16 10/20/16 11:58 12:00 10:28 Sodium Level 129 MEQ/L 137 MEQ/L Potassium Level 3.4 MEQ/L 3.7 MEQ/L Chloride Level 92 MEQ/L 97 MEQ/L Carbon Dioxide Level 29.5 MEQ/L 30.2 MEQ/L Anion Gap 8 MEQ/L 10 MEQ/L Blood Urea Nitrogen 10 MG/DL 13 MG/DL Creatinine 1.09 MG/DL 1.33 MG/DL Estimat Glomerular Filtration 67 ML/MIN 54 ML/MIN Rate Random Glucose 104 MG/DL 114 MG/DL Calcium Level 8.5 MG/DL 9.0 MG/DL Total Bilirubin 0.8 MG/DL 0.8 MG/DL Aspartate Amino Transf 25 U/L 23 U/L (AST/SGOT) Alanine Aminotransferase 24 U/L 22 U/L (ALT/SGPT) Alkaline Phosphatase 93 U/L 101 U/L Total Protein 7.0 GM/DL 7.8 GM/DL Albumin 3.3 GM/DL 3.6 GM/DL White Blood Count 7.2 TH/MM3 Red Blood Count 3.94 MIL/MM3 Hemoglobin 13.6 GM/DL Hematocrit 40.3 % Mean Corpuscular Volume 102.2 FL Mean Corpuscular Hemoglobin 34.5 PG Mean Corpuscular Hemoglobin 33.8 % Concent Red Cell Distribution Width 14.4 % Platelet Count 179 TH/MM3 Mean Platelet Volume 9.4 FL Neutrophils (%) (Auto) 77.4 % Lymphocytes (%) (Auto) 15.4 % Monocytes (%) (Auto) 6.1 % Eosinophils (%) (Auto) 0.4 % Basophils (%) (Auto) 0.7 % Neutrophils # (Auto) 5.6 TH/MM3 Lymphocytes # (Auto) 1.1 TH/MM3 Monocytes # (Auto) 0.4 TH/MM3 Eosinophils # (Auto) 0.0 TH/MM3 Basophils # (Auto) 0.1 TH/MM3 CBC Comment DIFF FINAL Differential Comment Urine Color YELLOW Urine Turbidity HAZY Urine pH 5.5 Urine Specific [place] 1.015 Urine Protein TRACE mg/dL Urine Glucose (UA) NEG mg/dL Urine Ketones NEG mg/dL Urine Occult Blood NEG Urine Nitrite POS Urine Bilirubin NEG Urine Urobilinogen 2.0 MG/DL Urine Leukocyte Esterase LARGE Urine RBC 1 /hpf Urine WBC 15 /hpf Urine Transitional Epithelial <1 /hpf Cells Urine Bacteria MANY /hpf Urine Hyaline Casts 1 /lpf Urine Mucus FEW /lpf Microscopic Urinalysis Comment CULTURE INDICATED Erythrocyte Sedimentation Rate 15 mm/hr Vital Signs Date Time Temp Pulse Resp B/P Pulse Ox O2 Delivery O2 Flow Rate FiO2 10/20/16 12:29 98.0 80 20 112/84 92 10/20/16 08:32 97.2 63 20 124/81 97 10/20/16 04:00 96.9 74 18 120/77 98 10/20/16 01:00 97.0 70 18 110/74 97 10/19/16 21:00 71 19 107/73 96 Room Air 10/19/16 19:00 85 17 112/74 98 Room Air 10/19/16 17:07 89 20 101/70 97 Room Air 10/19/16 14:21 89 18 113/78 98 10/19/16 11:15 101 15 100 Room Air 10/19/16 11:12 98.4 105 15 153/98 100 10/19/16 11:12 98.4 104 15 153/98 100 Room Air (Dmitriy Ventura) Medical Decision Making Impression and Plan Diagnosis: (1) Severe back pain ICD Code: M54.9 (2) Spinal stenosis at L4-L5 level ICD Code: M48.06 Impression: 1. Low back pain w/radiculopathy 2. L4-5 spinal stenosis 3. UTI ESR 15 Physical Therapy recommends home w/wheeled walker and either Home Health for further therapy or outpatient therapy Urine culture with Gram negative rods, still in process MRI cervical spine demonstrates neural foramina compromise bilateral C3-4, bilateral C4-5 & bilateral C6-7 w/o any significant thecal sac stenosis Patient doing well, improved low back pain and decreased radiculopathy w/ improvement in ambulation Plan: Discussed plan of care with patient Discussed plan of care with Case Management Will change to observation status Plan to discharge patient home tomorrow Will order wheeled walker Physical therapy, [facility] vs outpatient (Dmitriy Ventura) Attending Statement I have personally seen and examined the patient on the date of this note. Pertinent documentation and study results have been reviewed by the undersigned. I have personally developed the treatment plan and performed medical decision making. Agree with findings, exam, and treatment plan as noted above. Mr. Saba states that he feels much better today. He is ambulating well and states that the pain in his hips is much better. He does not have a history of chronic gluteal hip or lower extremity pain, and this seemed to start rather rapidly in the past few days. It is suspected that he developed myalgia/myositis related to his urinary tract infection. The patient's 10/20/2016 MRI of the cervical spine images of been reviewed by the undersigned today. The study reveals moderate degenerative disc disease with moderate central canal stenosis but no significant spinal cord compression and only mild to moderate scattered areas of foraminal stenosis. He does not have any evidence of cervical radiculopathy or myelopathy on examination. It is anticipated that he will be stable for discharge on 10/21/16 if he continues to improve. Continue present antibiotics for UTI. (Eddie Obrien MD ) Dmitriy Ventura Oct 20, 2016 16:29 Eddie Obrien MD Oct 20, 2016 19:11
--- NOTE | 2016-10-20 16:47 | HHI.FF ---
Face to Face Verification Diagnosis: (1) Severe back pain (2) Spinal stenosis at L4-L5 level Physical Therapy Order: Evaluate and Treat, Improve ambulation, Strength and gait training I have seen patient Jann Shaw on 10/20/16. My clinical findings support the need for the requested home health care services because: High risk of falls I certify that my clinical findings support that this patient is homebound because: Unsteady gait/balance Dmitriy Ventura [facility] Oct 20, 2016 16:47
[2016-10-20 20:00] VITALS: BP 114/67; PULSE 76; RESP 18; TEMP 97.8; O2SAT 97
[2016-10-20] MEDS ORDERED: cefTRIAXone INJ 1,000 MG in SODIUM CHLORIDE 0.9% INJ 100 ML IV ONE (21:00)
[2016-10-21] VITALS: BP 111/70; PULSE 87; RESP 20; TEMP 98; O2SAT 98
[2016-10-21] MEDS: SODIUM CHLORIDE 23.4% INJ 188 MEQ in SODIUM CHLOR 0.9% 1000 ML INJ 1,000 ML IV SCH (00:37)
[2016-10-21 04:00] VITALS: BP 152/86; PULSE 64; RESP 18; TEMP 98; O2SAT 98
[2016-10-21 08:00] VITALS: BP 126/83; PULSE 70; RESP 17; TEMP 97.5; O2SAT 100
[2016-10-21] MEDS: POTASSIUM CHLORIDE 10 MEQ CONTROLLED RELEASE TAB PO SCH (08:17)
[2016-10-21 12:00] VITALS: BP 114/70; PULSE 64; RESP 18; TEMP 95.8; O2SAT 95
--- NOTE | 2016-10-21 13:18 | HHI.NSPN ---
History Chief Complaint: No complaints this afernoon Interval History 10/19: This is a 66-year-old male who reports that he started with mid back pain a few weeks ago that has gradually worsened and changed locations. He states that he now has pain in the neck and the low back. The low back pain goes into both buttocks/hips when he stands and that both hips will give out on him. He denies any numbness, tingling or pain down either lower extremity or to the upper extremities. He states that he is unable to walk due to the pain but denies any falls. He has taken a "couple of Aleve" for the pain but denies any other medication for the pain. He reports urinating and stooling on himself but was aware he needed to go to the bathroom. He states he wasn't able to make it to the bathroom due to the pain and thus soiled himself. He reports that he lives by himself. When seen he states that his neck felt tight but was not painful and he denied any pain to the hips or the back. He has had a previous cervical fracture in 1970 in which he was placed in tongs with traction which resulted in fusion of C5-6 when in the . He denied any surgery to the cervical spine. 10/20: Patient states that he is doing much better today and that he is "dancing around here." Physical Therapy evaluated the patient and he was able to ambulate using a wheeled walker. He reports that his back pain is much better today. 10/21: The patient states he is doing good and has no complaints. He states that he has been up and ambulating on his own with a wheeled walker. System Review Comments CONSTITUTIONAL: Patient denies any fever or chills. NECK: Patient denies any neck pain. RESPIRATORY: Patient denies any shortness of breath or productive cough. CARDIOVASCULAR: Patient denies any chest pain, palpitations or irregular heartbeat. GASTROINTESTINAL: Patient denies any abdominal pain, nausea, vomiting or incontinence of stool. GENITOURINARY: Patient denies any incontinence of urine. INTEGUMENTARY: Patient denies any rashes, ulcerations or other lesions. MUSCULOSKELETAL: Patient denies any back or extremity pain or extremity weakness. He states that he is getting up and ambulating on his own using a wheeled walker. NEUROLOGICAL: Patient denies any headache, dizziness, numbness or tingling. Exam Results Vital Signs Date Time Temp Pulse Resp B/P Pulse Ox O2 Delivery O2 Flow Rate FiO2 10/21/16 08:00 97.5 70 17 126/83 100 10/19/16 21:00 Room Air Intake and Output 10/20/16 10/20/16 10/21/16 08:00 16:00 00:00 Intake Total 120 ml 960 ml Balance 120 ml 960 ml Physical Examination GENERAL: Patient watching TV in bed, no apparent distress, normal affect. RESPIRATORY: CTAB w/o W/R/R, equal excursion, nonlaboured, on RA. CARDIOVASCULAR: S1S2 w/RRR w/o M/G/R, radial & pedal pulses 2+ bilaterally, cap refill < 2 sec, no pedal edema. GASTROINTESTINAL: Abdomen soft, nontender, positive bowel sounds. INTEGUMENTARY: Skin warm, dry & intact, no evident discolouration, ulcerations, rashes or other lesions. MUSCULOSKELETAL: SOLIMAN w/o difficulty, 5th digit bilateral hands w/boutonniere deformity, no evident clubbing, extremities & back NTTP . NEUROLOGICAL: AAOx3 Speech clear & appropriate Follows simple commands w/o difficulty Sensation intact to light touch to all extremities Motor strength 5/5 to all major flexion & muscle groups Medical Decision Making Impression and Plan Diagnosis: (1) Severe back pain ICD Code: M54.9 (2) Spinal stenosis at L4-L5 level ICD Code: M48.06 Impression: 1. Low back pain w/radiculopathy 2. L4-5 spinal stenosis 3. UTI ESR 15 Physical Therapy recommends home w/wheeled walker and either Home Health for further therapy or outpatient therapy Urine culture with E coli MRI cervical spine demonstrates neural foramina compromise bilateral C3-4, bilateral C4-5 & bilateral C6-7 w/o any significant thecal sac stenosis Patient continues to do well, no complaints of low back pain or radiculopathy, ambulating on own with wheeled walker Plan: Discussed plan of care with patient Discussed plan of care with Case Management & Nursing Will discharge patient home Script for outpatient physical therapy Wheeled walker in room Script for Macrobid 100 mg BID x7d g Follow up as needed Dmitriy Ventura Oct 21, 2016 13:18
[2016-10-21] MEDS ORDERED: NITROFURANTOIN MONOHYD MACROCR 100 MG CAP PO ONE (13:30)
[2016-10-21] MEDS ORDERED: MACR100C2 PO (13:31)
--- NOTE | 2016-10-21 14:03 | HHI.DCPOC ---
Discharge Care Plan Diagnosis: (1) Severe back pain (2) Spinal stenosis at L4-L5 level Additional Problems Difficulty ambulating Goals to Promote Your Health * To prevent worsening of your condition and complications Use the wheeled walker when ambulating Follow up with outpatient physical therapy * To maintain your health at the optimal level Follow the exercise plan as directed by physical therapy Directions to Meet Your Goals Take your medications as prescribed Complete the antibiotic as directed on the label Follow your dietary instruction Follow activity as directed No heavy lifting, bending over, reaching, or twisting motion to the back. Keep your appointments as scheduled There is no need to follow up with Dr Obrien (Neurosurgery) unless you have any further problems Take your immunizations and boosters as scheduled If your symptoms worsen call your PCP, if no PCP go to Urgent Care Center or Emergency Room Smoking is Dangerous to Your Health. Avoid second hand smoke Call the 24-hour hour crisis hotline for domestic abuse at Dmitriy Ventura Oct 21, 2016 14:03
--- NOTE | 2016-10-21 14:08 | HHI.DS ---
Discharge Summary Admission Date Oct 19, 2016 at 15:50 Discharge Date: Oct 21, 2016 Admitting Diagnosis severe spinal stenosis/back pain/difficulty walking (1) Severe back pain Diagnosis: Principal ICD Code: M54.9 (2) Spinal stenosis at L4-L5 level ICD Code: M48.06 CBC/BMP: 10/19/16 1158 10/20/16 1028 Significant Findings Laboratory Tests Test 10/19/16 10/19/16 10/20/16 11:58 12:00 10:28 Sodium Level 129 MEQ/L (136-145) Potassium Level 3.4 MEQ/L (3.5-5.1) Chloride Level 92 MEQ/L 97 MEQ/L (98-107) (98-107) Estimat Glomerular Filtration 67 ML/MIN (>89) 54 ML/MIN (>89) Rate Albumin 3.3 GM/DL (3.4-5.0) Red Blood Count 3.94 MIL/MM3 (4.50-5.90) Mean Corpuscular Volume 102.2 FL (80.0-100.0) Mean Corpuscular Hemoglobin 34.5 PG (27.0-34.0) Neutrophils (%) (Auto) 77.4 % (16.0-70.0) Urine Turbidity HAZY (CLEAR) Urine Nitrite POS (NEG) Urine Leukocyte Esterase LARGE (NEG) Urine WBC 15 /hpf (0-5) Urine Bacteria MANY /hpf (NONE) Urine Mucus FEW /lpf (OCC) Creatinine 1.33 MG/DL (0.60-1.30) Random Glucose 114 MG/DL (74-106) Hospital Course 10/19: This is a 66-year-old male who reports that he started with mid back pain a few weeks ago that has gradually worsened and changed locations. He states that he now has pain in the neck and the low back. The low back pain goes into both buttocks/hips when he stands and that both hips will give out on him. He denies any numbness, tingling or pain down either lower extremity or to the upper extremities. He states that he is unable to walk due to the pain but denies any falls. He has taken a "couple of Aleve" for the pain but denies any other medication for the pain. He reports urinating and stooling on himself but was aware he needed to go to the bathroom. He states he wasn't able to make it to the bathroom due to the pain and thus soiled himself. He reports that he lives by himself. When seen he states that his neck felt tight but was not painful and he denied any pain to the hips or the back. He has had a previous cervical fracture in 1970 in which he was placed in tongs with traction which resulted in fusion of C5-6 when in the . He denied any surgery to the cervical spine. 10/20: Patient states that he is doing much better today and that he is "dancing around here." Physical Therapy evaluated the patient and he was able to ambulate using a wheeled walker. He reports that his back pain is much better today. 10/21: The patient states he is doing good and has no complaints. He states that he has been up and ambulating on his own with a wheeled walker. Pt Condition on Discharge: Good Discharge Disposition: Discharge Home Discharge Instructions DIET: Follow Instructions for: As Tolerated, No Restrictions ACTIVITIES You can perform: Full Weight Bearing Activities to Avoid: Lifting/Bending, Strenuous Activity ADDITIONAL Activity Instructio: Use the wheeled walker when ambulating New Medications: Nitrofurantoin Monohydrate Macrocrystals (Macrobid) 100 Mg Cap 100 MG PO BID Infection Days 7 Ref 0 CAP Walker with Front Wheels (Walker with Front Wheels) 1 Mis Mis 1 EA .ROUTE DIRECTED #1 Ref 0 EA Additional Information Script provided for outpatient physical therapy. Script provided for wheeled walker. Dmitriy Ventura Oct 21, 2016 14:08
== END 2016-10-21 15:02 | disposition home or self-care (01) ==
LOC: NEPC 10:51 → INTOOBSV 15:50 → NEDA 15:50 → N05A 22:09
PROVIDERS: ADMIT Neurological Surgery; ATTEND Neurological Surgery
DX: M48.06 Spinal stenosis, lumbar region (principal); R26.2 Difficulty in walking, not elsewhere classified; N39.0 Urinary tract infection, site not specified; F17.200 Nicotine dependence, unspecified, uncomplicated
CPT/HCPCS: 71020; 72128; 72131; 72141; 73700; 80053; 81001; 85025; 85652; 87040; 87077; 87086; 87186; 97162; 99285; G0378; J0696; J7030